=== PATIENT | female | born 1950 | race Caucasian/White ===

== ENCOUNTER 2021-01-05 11:57 | Emergency (ER) | payer OTHER, MEDICARE | END 2021-01-05 14:04 | disposition home or self-care (01) | LOC: ERS 11:57 | DX: S82.001A Unspecified fracture of right patella, initial encounter for closed fracture (principal); S00.33XA Contusion of nose, initial encounter; I10 Essential (primary) hypertension; E03.9 Hypothyroidism, unspecified; G62.9 Polyneuropathy, unspecified; E78.5 Hyperlipidemia, unspecified; M19.90 Unspecified osteoarthritis, unspecified site; Z87.891 Personal history of nicotine dependence; Z79.899 Other long term (current) drug therapy; W19.XXXA Unspecified fall, initial encounter | CPT/HCPCS: 70450; 70486; 72125 ==